=== PATIENT | male | born 1970 | race Caucasian/White ===

== ENCOUNTER → 2016-05-14 | Outpatient (CLI) | payer MEDICAID ==
[~2016-05-14] MED LIST: ACULAR 3 ML3 M1 OP; CATAFLAM50 MG PO; HYDROCODONE BIT1 T11 PO; IBU-8800 MG PO; MOTRIN800 MG PO; Motrin,Rufen800 MG PO; NORFLEX100 MG PO; Orphenadrine C100 MG PO; ROBAXIN750 MG PO; TOBRADEX 0.1%-0.5 ML OPH; TOBREX OPHTH S2.5 ML OPH; VICODIN ES 7501 TAB PO
[2016-05-14 19:03] LABS: HEMATOCRIT 42.8 % (42.0-52.0); HEMOGLOBIN 14.7 g/dl (14.0-18.0); MEAN CELL VOLUME 87.3 fl (80.0-94.0); MEAN CORPUSCULAR HGB CONC 34.3 g/dl (33.0-37.0); RED BLOOD COUNT 4.9 10*6/uL (4.50-5.90); RED CELL DISTRI WIDTH 12.1 % (0-14.5); WHITE BLOOD COUNT 7.1 10*3/uL (4.8-10.8)
[2016-05-14 19:21] LABS: ALBUMIN 3.8 gm/dl (3.1-4.5); ALKALINE PHOSPHATASE 86 U/L (45-117); BILIRUBIN, TOTAL 0.2 mg/dl (0.2-1.0); BUN 13 mg/dl (7-24); CARBON DIOXIDE 28 mmol/L (21-32); CHLORIDE 108 mmol/L (98-107); CHOLESTEROL 250 mg/dL (<200); EST GLOM FILT AFRICAN AMERICAN > 60 ml/min; GLUCOSE 92 mg/dL (65-99); HDL CHOLESTEROL 38 mg/dl (40-60); LDL CHOLESTEROL 178 mg/dL (9-159); POTASSIUM 4.2 mmol/L (3.5-5.1); SGOT/AST 64 IU/L (3-35); SGPT/ALT 94 U/L (12-78); SODIUM 143 mmol/L (136-145); TOTAL PROTEIN 6.9 gm/dL (6.4-8.2); TRIGLYCERIDES 169 mg/dl (<150); VLDL CHOLESTEROL 34 mg/dL (6-40)
[2016-05-14 19:44] LABS: HEMOGLOBIN A1c 5.5 % (4.8-5.6)
== END | disposition home or self-care (01) ==
LOC: LAB 18:22
PROVIDERS: Family Medicine
DX: M77.9 Enthesopathy, unspecified (principal); M79.602 Pain in left arm; R07.89 Other chest pain; R73.9 Hyperglycemia, unspecified; R05 Cough

== ENCOUNTER → 2016-05-19 | Outpatient (CLI) | payer MEDICAID ==
[2016-05-20 09:10] LABS: HEPATITIS C VIRUS ANTIBODY <0.1 s/co (0.0-0.9)
== END | disposition home or self-care (01) ==
LOC: MRI 13:00 → LAB 13:01
PROVIDERS: Specialist
DX: H90.42 Sensorineural hearing loss, unilateral, left ear, with unrestricted hearing on the contralateral side (principal); J01.20 Acute ethmoidal sinusitis, unspecified; R94.5 Abnormal results of liver function studies

== ENCOUNTER → 2016-10-30 | Outpatient (CLI) | payer OTHER | END | disposition home or self-care (01) | LOC: US 10-22 00:24 | DX: I73.9 Peripheral vascular disease, unspecified (principal) ==

== ENCOUNTER → 2016-11-10 | Outpatient (CLI) | payer OTHER ==
[~2016-11-10] MED LIST changes: +ECOTRIN81 M1 PO
--- NOTE | 2016-11-10 07:00 | NUR ---
INFORMED CONSENT OBTAINED FOR EXERCISE STRESS ECHO. RESTING EKG NSR WITH FREQUENT PVC'S WITH A SUPINE HR OF 77 WITH BP OF 104/62 AND HR OF 84 WITH BP OF 122/80 IN STANDING POSITION. PT COMPLETED 6:00 OF A 2:00 ALDO PROTOCOL WITH A PEAK HR OF 160 WHICH IS 92% OF PREDICTED MAX WITH PEAK BP OF 170/88. TEST TERMINATED BECAUSE OF FATIGUE. HAD NO CHEST PAIN OR ANY ST CHANGES. PVC'S LESS WITH EXERCISE. NEGATIVE STRESS ECHO. SEE DICTATION FOR FULL REPORT. LAST RECOVERY HR OF 95 WITH BP OF 144/58. HAS A GOOD EXERCISE TOLERANCE. IV DISCONTINUED AND DISCHARGED IN STABLE CONDITION.
== END | disposition home or self-care (01) ==
LOC: CARD 01:53
DX: I20.9 Angina pectoris, unspecified (principal)

== ENCOUNTER → 2016-11-20 | Outpatient (CLI) | payer OTHER ==
[2016-11-20 11:34] LABS: HEMATOCRIT 43.6 % (42.0-52.0); HEMOGLOBIN 14.7 g/dl (14.0-18.0); MEAN CELL VOLUME 88.1 fl (80.0-94.0); MEAN CORPUSCULAR HGB 29.7 pg (27.0-31.0); MEAN CORPUSCULAR HGB CONC 33.7 g/dl (33.0-37.0); MEAN PLATELET VOLUME 11.4 fl (9.6-12.3); RED BLOOD COUNT 4.95 10*6/uL (4.50-5.90); RED CELL DISTRI WIDTH 12.5 % (0-14.5); WHITE BLOOD COUNT 9.6 10*3/uL (4.8-10.8)
[2016-11-20 12:06] LABS: ALBUMIN 3.6 gm/dl (3.1-4.5); ALKALINE PHOSPHATASE 84 U/L (45-117); BUN 16 mg/dl (7-24); CHLORIDE 107 mmol/L (98-107); CHOLESTEROL 267 mg/dL (<200); CREATININE 0.81 mg/dL (0.70-1.30); HDL CHOLESTEROL 43 mg/dl (40-60); LDL CHOLESTEROL 194 mg/dL (9-159); POTASSIUM 4.5 mmol/L (3.5-5.1); SGOT/AST 20 IU/L (3-35); SGPT/ALT 33 U/L (12-78); SODIUM 142 mmol/L (136-145); TRIGLYCERIDES 151 mg/dl (<150); VLDL CHOLESTEROL 30 mg/dL (6-40)
== END | disposition home or self-care (01) ==
LOC: LAB 11:04
PROVIDERS: Family Medicine
DX: E78.00 Pure hypercholesterolemia, unspecified (principal); E55.9 Vitamin D deficiency, unspecified; R07.9 Chest pain, unspecified; R53.83 Other fatigue

== ENCOUNTER 2017-03-23 14:33 | Emergency (ER) | payer OTHER ==
[~2017-03-23] VITALS: Ht 172.7 cm; Wt 104.3 kg
[2017-03-23] MEDS ORDERED: CYCLOBENZAPRINE10 MG PO (16:41)
[2017-03-23] MEDS ORDERED: NAPROSYN500 MG PO (16:41)
== END 2017-03-23 16:47 | disposition home or self-care (01) ==
LOC: ED 14:33
DX: S16.1XXA Strain of muscle, fascia and tendon at neck level, initial encounter (principal); M25.512 Pain in left shoulder; M25.562 Pain in left knee; M25.571 Pain in right ankle and joints of right foot; F17.200 Nicotine dependence, unspecified, uncomplicated; Z79.82 Long term (current) use of aspirin; Z88.0 Allergy status to penicillin; Z88.2 Allergy status to sulfonamides; Z88.6 Allergy status to analgesic agent; V49.88XA Car occupant (driver) (passenger) injured in other specified transport accidents, initial encounter; Y93.89 Activity, other specified; Y92.413 State road as the place of occurrence of the external cause; Y99.9 Unspecified external cause status

== ENCOUNTER → 2017-07-02 | Outpatient (CLI) | payer OTHER ==
[~2017-07-02] MED LIST changes: +CYCLOBENZAPRINE10 MG PO; +NAPROSYN500 MG PO
[2017-07-02 19:58] LABS: HEMOGLOBIN 14.3 g/dl (14.0-18.0); MEAN CELL VOLUME 85.4 fl (80.0-94.0); MEAN CORPUSCULAR HGB 29.8 pg (27.0-31.0); MEAN CORPUSCULAR HGB CONC 34.9 g/dl (33.0-37.0); MEAN PLATELET VOLUME 11.1 fl (9.6-12.3); RED BLOOD COUNT 4.8 10*6/uL (4.50-5.90); RED CELL DISTRI WIDTH 12.1 % (0-14.5); WHITE BLOOD COUNT 10.7 10*3/uL (4.8-10.8)
[2017-07-02 20:13] LABS: ALBUMIN 4.1 gm/dl (3.1-4.5); ALKALINE PHOSPHATASE 73 U/L (45-117); BUN 14 mg/dl (7-24); CHLORIDE 106 mmol/L (98-107); CHOLESTEROL 257 mg/dL (<200); CREATININE 0.81 mg/dL (0.70-1.30); HDL CHOLESTEROL 45 mg/dl (40-60); LDL CHOLESTEROL 189 mg/dL (9-159); POTASSIUM 3.7 mmol/L (3.5-5.1); SGOT/AST 16 IU/L (3-35); SGPT/ALT 24 U/L (12-78); SODIUM 141 mmol/L (136-145); TOTAL PROTEIN 7.1 gm/dL (6.4-8.2); TRIGLYCERIDES 114 mg/dl (<150); VLDL CHOLESTEROL 23 mg/dL (6-40)
== END | disposition home or self-care (01) ==
LOC: LAB 19:26
PROVIDERS: Family Medicine
DX: E78.00 Pure hypercholesterolemia, unspecified (principal); E55.9 Vitamin D deficiency, unspecified; R10.9 Unspecified abdominal pain; R53.83 Other fatigue

== ENCOUNTER → 2017-12-17 | Outpatient (CLI) | payer OTHER ==
[2017-12-17 16:19] LABS: CHOLESTEROL 210 mg/dL (<200); HDL CHOLESTEROL 54 mg/dl (40-60); LDL CHOLESTEROL 142 mg/dL (9-159); TRIGLYCERIDES 72 mg/dl (<150); VLDL CHOLESTEROL 14 mg/dL (6-40)
== END | disposition home or self-care (01) ==
LOC: LAB 15:01
PROVIDERS: Family Medicine
DX: E78.00 Pure hypercholesterolemia, unspecified (principal)

== ENCOUNTER → 2018-04-04 | Outpatient (CLI) | payer OTHER ==
[2018-04-04 12:56] LABS: HEMATOCRIT 42.7 % (42.0-52.0); HEMOGLOBIN 14.6 g/dl (14.0-18.0); MEAN CELL VOLUME 89.1 fl (80.0-94.0); MEAN CORPUSCULAR HGB 30.5 pg (27.0-31.0); MEAN CORPUSCULAR HGB CONC 34.2 g/dl (33.0-37.0); MEAN PLATELET VOLUME 11.7 fl (9.6-12.3); RED BLOOD COUNT 4.79 10*6/uL (4.50-5.90); RED CELL DISTRI WIDTH 12.2 % (0-14.5); WHITE BLOOD COUNT 7.7 10*3/uL (4.8-10.8)
[2018-04-04 13:00] LABS: ALBUMIN 3.8 gm/dl (3.1-4.5); ALKALINE PHOSPHATASE 71 U/L (45-117); BUN 14 mg/dl (7-24); CHLORIDE 110 mmol/L (98-107); CHOLESTEROL 202 mg/dL (<200); CPK 149 U/L (39-308); CREATININE 0.89 mg/dL (0.70-1.30); HDL CHOLESTEROL 53 mg/dl (40-60); LDL CHOLESTEROL 136 mg/dL (9-159); POTASSIUM 4.2 mmol/L (3.5-5.1); SGOT/AST 16 IU/L (3-35); SGPT/ALT 23 U/L (12-78); SODIUM 141 mmol/L (136-145); TOTAL PROTEIN 7.1 gm/dL (6.4-8.2); TRIGLYCERIDES 66 mg/dl (<150); VLDL CHOLESTEROL 13 mg/dL (6-40)
== END | disposition home or self-care (01) ==
LOC: LAB 11:21
PROVIDERS: Family Medicine
DX: E55.9 Vitamin D deficiency, unspecified (principal); E78.00 Pure hypercholesterolemia, unspecified; R22.32 Localized swelling, mass and lump, left upper limb

== ENCOUNTER → 2018-07-21 | Outpatient (CLI) | payer BC ==
[2018-07-21 09:17] LABS: HEMATOCRIT 41.7 % (42.0-52.0); HEMOGLOBIN 14.2 g/dl (14.0-18.0); MEAN CELL VOLUME 88.3 fl (80.0-94.0); MEAN CORPUSCULAR HGB 30.1 pg (27.0-31.0); MEAN CORPUSCULAR HGB CONC 34.1 g/dl (33.0-37.0); RED BLOOD COUNT 4.72 10*6/uL (4.50-5.90); RED CELL DISTRI WIDTH 11.9 % (0-14.5); WHITE BLOOD COUNT 8.8 10*3/uL (4.8-10.8)
[2018-07-21 09:47] LABS: ALBUMIN 3.9 gm/dl (3.1-4.5); ALKALINE PHOSPHATASE 65 U/L (45-117); BUN 22 mg/dl (7-24); CHLORIDE 111 mmol/L (98-107); CHOLESTEROL 237 mg/dL (<200); CPK 99 U/L (39-308); HDL CHOLESTEROL 38 mg/dl (40-60); LDL CHOLESTEROL 166 mg/dL (9-159); SGOT/AST 16 IU/L (3-35); SGPT/ALT 20 U/L (12-78); SODIUM 143 mmol/L (136-145); TOTAL PROTEIN 6.5 gm/dL (6.4-8.2); TRIGLYCERIDES 166 mg/dl (<150); VLDL CHOLESTEROL 33 mg/dL (6-40)
[2018-07-23 05:07] LABS: TESTOSTERONE FREE, (DIRECT) 6.6 pg/mL (6.8-21.5)
== END | disposition home or self-care (01) ==
LOC: LAB 08:53
PROVIDERS: Family Medicine
DX: M47.812 Spondylosis without myelopathy or radiculopathy, cervical region (principal); E78.00 Pure hypercholesterolemia, unspecified; E55.9 Vitamin D deficiency, unspecified; R53.83 Other fatigue; M25.511 Pain in right shoulder

== ENCOUNTER 2019-08-02 16:10 | Emergency (ER) | payer OTHER ==
[~2019-08-02] VITALS: Ht 177.8 cm; Wt 108.0 kg
== END 2019-08-02 19:20 | disposition home or self-care (01) ==
LOC: ED 16:10
DX: S60.221A Contusion of right hand, initial encounter (principal); Z88.0 Allergy status to penicillin; Z88.2 Allergy status to sulfonamides; Z88.6 Allergy status to analgesic agent; Z79.899 Other long term (current) drug therapy; Z79.82 Long term (current) use of aspirin; W22.8XXA Striking against or struck by other objects, initial encounter; Y93.89 Activity, other specified; Y92.89 Other specified places as the place of occurrence of the external cause; Y99.8 Other external cause status

== ENCOUNTER → 2019-11-21 | Outpatient (CLI) | payer OTHER ==
[2019-11-21 11:41] LABS: HEMATOCRIT 44.4 % (42.0-52.0); MEAN CORPUSCULAR HGB 29.9 pg (27.0-31.0); MEAN CORPUSCULAR HGB CONC 33.6 g/dl (33.0-37.0); MEAN PLATELET VOLUME 10.9 fl (9.6-12.3); RED BLOOD COUNT 4.99 10*6/uL (4.50-5.90); RED CELL DISTRI WIDTH 12.3 % (0-14.5); WHITE BLOOD COUNT 8.3 10*3/uL (4.8-10.8)
[2019-11-21 12:04] LABS: ALBUMIN 3.9 gm/dl (3.1-4.5); ALKALINE PHOSPHATASE 71 U/L (45-117); BUN 16 mg/dl (7-24); CHLORIDE 110 mmol/L (98-107); CHOLESTEROL 269 mg/dL (<200); CREATININE 0.81 mg/dL (0.70-1.30); HDL CHOLESTEROL 48 mg/dl (40-60); LDL CHOLESTEROL 203 mg/dL (9-159); SGOT/AST 17 IU/L (3-35); SGPT/ALT 25 U/L (12-78); SODIUM 138 mmol/L (136-145); TOTAL PROTEIN 6.9 gm/dL (6.4-8.2); TRIGLYCERIDES 92 mg/dl (<150); VLDL CHOLESTEROL 18 mg/dL (6-40)
[2019-11-23 13:11] LABS: TESTOSTERONE FREE, (DIRECT) 5.6 pg/mL (6.8-21.5)
== END | disposition home or self-care (01) ==
LOC: LAB 11:15
PROVIDERS: ATTEND Family Medicine
DX: R22.31 Localized swelling, mass and lump, right upper limb (principal); N64.4 Mastodynia; Z12.5 Encounter for screening for malignant neoplasm of prostate

== ENCOUNTER 2020-04-15 18:56 | Emergency (ER) | payer OTHER ==
[~2020-04-15] VITALS: Ht 175.2 cm; Wt 106.6 kg
[2020-04-15 21:09] LABS: BASO # 0.1 10*3/uL (0.0-0.1); BASO % 0.5 % (0.0-1.0); EOS # 0.2 10*3/uL (0.0-0.4); EOS % 1.5 % (1.0-4.0); HEMATOCRIT 43.1 % (42.0-52.0); LYMPH # 2.7 10*3/uL (1.3-4.4); LYMPH % 20.6 % (27.0-41.0); MEAN CELL VOLUME 88.3 fl (80.0-94.0); MEAN CORPUSCULAR HGB 29.7 pg (27.0-31.0); MEAN CORPUSCULAR HGB CONC 33.6 g/dl (33.0-37.0); MEAN PLATELET VOLUME 10.3 fl (9.6-12.3); MONO # 0.9 10*3/uL (0.1-1.0); MONO % 6.5 % (3.0-9.0); NEUT # 9.2 10*3/uL (2.3-7.9); NEUT % 70.5 % (47.0-73.0); PLATELET COUNT AUTOMATED 251 10*3/uL (130-400); RED BLOOD COUNT 4.88 10*6/uL (4.50-5.90); RED CELL DISTRI WIDTH 12.2 % (0-14.5); WHITE BLOOD COUNT 13.1 10*3/uL (4.8-10.8)
[2020-04-15 21:25] LABS: ALBUMIN 3.8 gm/dl (3.1-4.5); ALKALINE PHOSPHATASE 79 U/L (45-117); BUN 13 mg/dl (7-24); CHLORIDE 107 mmol/L (98-107); CREATININE 0.79 mg/dL (0.70-1.30); LIPASE 117 U/L (73-393); POTASSIUM 4.4 mmol/L (3.5-5.1); SGOT/AST 20 IU/L (3-35); SGPT/ALT 37 U/L (12-78); SODIUM 141 mmol/L (136-145); TOTAL PROTEIN 7.1 gm/dL (6.4-8.2)
[2020-04-15 22:22] LABS: BILIRUBIN Negative (Negative); BLOOD 1+ (Negative); CLARITY Clear (Clear); COLOR Yellow (Yellow); GLUCOSE Negative (Negative); KETONE Negative (Negative); LEUKO ESTERASE Negative (Negative); NITRITE Negative (Negative); UROBILINOGEN 0.2 E.U./dl (0.0-1.0)
[2020-04-15 22:31] LABS: WBC 0-2 wbc/hpf (0-5)
== END 2020-04-16 00:15 | disposition home or self-care (01) ==
LOC: ED 18:56
PROVIDERS: Physician Assistant
DX: R10.9 Unspecified abdominal pain (principal); K21.9 Gastro-esophageal reflux disease without esophagitis; E78.00 Pure hypercholesterolemia, unspecified; Z88.0 Allergy status to penicillin; Z88.2 Allergy status to sulfonamides; Z79.899 Other long term (current) drug therapy

== ENCOUNTER 2020-10-29 18:22 | Emergency (ER) | payer OTHER ==
[~2020-10-29] VITALS: Ht 175.2 cm; Wt 83.9 kg
[2020-10-29 19:06] LABS: BASO # 0.1 10*3/uL (0.0-0.1); BASO % 0.9 % (0.0-1.0); EOS # 0.2 10*3/uL (0.0-0.4); EOS % 2.2 % (1.0-4.0); HEMATOCRIT 44.1 % (42.0-52.0); LYMPH # 3.2 10*3/uL (1.3-4.4); LYMPH % 39.8 % (27.0-41.0); MEAN CELL VOLUME 87.3 fl (80.0-94.0); MEAN CORPUSCULAR HGB 29.7 pg (27.0-31.0); MEAN PLATELET VOLUME 11.3 fl (9.6-12.3); MONO # 0.5 10*3/uL (0.1-1.0); MONO % 6.2 % (3.0-9.0); NEUT # 4.1 10*3/uL (2.3-7.9); NEUT % 50.5 % (47.0-73.0); PLATELET COUNT AUTOMATED 222 10*3/uL (130-400); RED BLOOD COUNT 5.05 10*6/uL (4.50-5.90); RED CELL DISTRI WIDTH 12.4 % (0-14.5); WHITE BLOOD COUNT 8.1 10*3/uL (4.8-10.8)
[2020-10-29 19:24] LABS: ALBUMIN 3.6 gm/dl (3.1-4.5); BUN 11 mg/dl (7-24); CHLORIDE 107 mmol/L (98-107); CREATININE 1.05 mg/dL (0.70-1.30); POTASSIUM 3.7 mmol/L (3.5-5.1); SGOT/AST 21 IU/L (3-35); SGPT/ALT 28 U/L (12-78); SODIUM 143 mmol/L (136-145); TOTAL PROTEIN 6.7 gm/dL (6.4-8.2)
[2020-10-29 19:27] LABS: ALKALINE PHOSPHATASE 74 U/L (45-117); TROPONIN I < 0.015 ng/ml (<0.045)
== END 2020-10-29 23:54 | disposition home or self-care (01) ==
LOC: ED 18:22
PROVIDERS: Emergency Medicine
DX: R07.9 Chest pain, unspecified (principal); Z88.0 Allergy status to penicillin; Z88.2 Allergy status to sulfonamides; Z88.6 Allergy status to analgesic agent; Z79.899 Other long term (current) drug therapy

== ENCOUNTER → 2021-01-09 | Outpatient (CLI) | payer OTHER | END | disposition home or self-care (01) | LOC: RAD 12:44 | PROVIDERS: ATTEND Family Medicine | DX: M25.562 Pain in left knee (principal) ==

== ENCOUNTER 2021-01-30 06:31 | Emergency (ER) | payer OTHER ==
[~2021-01-30] VITALS: Ht 177.8 cm; Wt 86.2 kg
[2021-01-30 07:00] LABS: BASO # 0.1 10*3/uL (0.0-0.1); BASO % 0.7 % (0.0-1.0); EOS # 0.2 10*3/uL (0.0-0.4); EOS % 2.9 % (1.0-4.0); LYMPH # 3.2 10*3/uL (1.3-4.4); LYMPH % 37.8 % (27.0-41.0); MEAN CELL VOLUME 88.7 fl (80.0-94.0); MEAN CORPUSCULAR HGB 30.3 pg (27.0-31.0); MEAN CORPUSCULAR HGB CONC 34.2 g/dl (33.0-37.0); MEAN PLATELET VOLUME 10.8 fl (9.6-12.3); MONO # 0.6 10*3/uL (0.1-1.0); MONO % 7.3 % (3.0-9.0); NEUT # 4.3 10*3/uL (2.3-7.9); NEUT % 51.1 % (47.0-73.0); PLATELET COUNT AUTOMATED 223 10*3/uL (130-400); RED BLOOD COUNT 4.85 10*6/uL (4.50-5.90); RED CELL DISTRI WIDTH 12.1 % (0-14.5); WHITE BLOOD COUNT 8.4 10*3/uL (4.8-10.8)
[2021-01-30 07:13] LABS: ACT PARTIAL THROMBO TIME 28.3 SECONDS (20.0-32.1)
[2021-01-30 07:17] LABS: ALBUMIN 3.7 gm/dl (3.1-4.5); ALKALINE PHOSPHATASE 74 U/L (45-117); BUN 13 mg/dl (7-24); CHLORIDE 108 mmol/L (98-107); CREATININE 0.81 mg/dL (0.70-1.30); POTASSIUM 4.3 mmol/L (3.5-5.1); SGOT/AST 28 IU/L (3-35); SGPT/ALT 32 U/L (12-78); SODIUM 139 mmol/L (136-145); TOTAL PROTEIN 6.8 gm/dL (6.4-8.2)
== END 2021-01-30 09:42 | disposition home or self-care (01) ==
LOC: ED 06:31
PROVIDERS: Internal Medicine
DX: R43.8 Other disturbances of smell and taste (principal); Z20.822 Contact with and (suspected) exposure to COVID-19; R53.83 Other fatigue; R53.1 Weakness; R05.9 Cough, unspecified; Z88.0 Allergy status to penicillin; Z88.2 Allergy status to sulfonamides; Z88.6 Allergy status to analgesic agent; Z79.82 Long term (current) use of aspirin

== ENCOUNTER 2021-03-11 06:53 | Emergency (ER) | payer OTHER ==
[~2021-03-11] VITALS: Ht 175.2 cm; Wt 99.8 kg
== END 2021-03-11 08:55 | disposition left against medical advice (07) ==
LOC: ED 06:53
DX: J02.9 Acute pharyngitis, unspecified (principal); R11.0 Nausea; R51.9 Headache, unspecified; Z53.21 Procedure and treatment not carried out due to patient leaving prior to being seen by health care provider

== ENCOUNTER 2021-04-14 17:07 | Emergency (ER) | payer OTHER ==
[~2021-04-14] VITALS: Ht 175.2 cm; Wt 99.8 kg
[2021-04-14 18:00] LABS: BASO # 0.1 10*3/uL (0.0-0.1); BASO % 0.9 % (0.0-1.0); EOS # 0.1 10*3/uL (0.0-0.4); EOS % 1.4 % (1.0-4.0); HEMATOCRIT 45.6 % (42.0-52.0); LYMPH % 21.8 % (27.0-41.0); MEAN CELL VOLUME 87.2 fl (80.0-94.0); MEAN CORPUSCULAR HGB 29.4 pg (27.0-31.0); MEAN CORPUSCULAR HGB CONC 33.8 g/dl (33.0-37.0); MEAN PLATELET VOLUME 11.1 fl (9.6-12.3); MONO # 0.7 10*3/uL (0.1-1.0); MONO % 7.2 % (3.0-9.0); NEUT # 6.3 10*3/uL (2.3-7.9); NEUT % 68.5 % (47.0-73.0); PLATELET COUNT AUTOMATED 218 10*3/uL (130-400); RED BLOOD COUNT 5.23 10*6/uL (4.50-5.90); WHITE BLOOD COUNT 9.2 10*3/uL (4.8-10.8)
[2021-04-14 18:19] LABS: ALKALINE PHOSPHATASE 69 U/L (45-117); BUN 14 mg/dl (7-24); CHLORIDE 111 mmol/L (98-107); CREATININE 0.85 mg/dL (0.70-1.30); POTASSIUM 3.7 mmol/L (3.5-5.1); SGOT/AST 21 IU/L (3-35); SGPT/ALT 26 U/L (12-78); SODIUM 141 mmol/L (136-145); TOTAL PROTEIN 6.8 gm/dL (6.4-8.2)
[2021-04-14] MEDS ORDERED: PREDNISONE50 MG PO (19:35)
[2021-04-14] MEDS ORDERED: PROAIR HFA8.5 GM INH (19:35)
== END 2021-04-14 20:00 | disposition home or self-care (01) ==
LOC: ED 17:07
PROVIDERS: Nurse Practitioner Family
DX: B34.9 Viral infection, unspecified (principal); J98.01 Acute bronchospasm; F17.200 Nicotine dependence, unspecified, uncomplicated; Z88.0 Allergy status to penicillin; Z88.2 Allergy status to sulfonamides; Z88.6 Allergy status to analgesic agent; Z90.89 Acquired absence of other organs

== ENCOUNTER 2021-06-11 11:26 | Emergency (ER) | payer OTHER ==
[~2021-06-11] VITALS: Ht 175.2 cm; Wt 97.5 kg
[~2021-06-11 11:26] MED LIST changes: +PREDNISONE50 MG PO; +PROAIR HFA8.5 GM INH
[2021-06-11] MEDS ORDERED: MEDROL DOSEPAK4 MG PO (16:03)
== END 2021-06-11 14:04 | disposition home or self-care (01) ==
LOC: ED 11:26
DX: S12.9XXA Fracture of neck, unspecified, initial encounter (principal); Z88.0 Allergy status to penicillin; Z88.6 Allergy status to analgesic agent; Z90.89 Acquired absence of other organs; X58.XXXA Exposure to other specified factors, initial encounter; Y93.89 Activity, other specified; Y92.89 Other specified places as the place of occurrence of the external cause; Y99.8 Other external cause status

== ENCOUNTER → 2021-10-23 | Outpatient (CLI) | payer OTHER ==
[~2021-10-23] MED LIST changes: +MEDROL DOSEPAK4 MG PO
[2021-10-23 15:57] LABS: HEMATOCRIT 42.5 % (42.0-52.0); MEAN CELL VOLUME 89.7 fl (80.0-94.0); MEAN CORPUSCULAR HGB 30.4 pg (27.0-31.0); MEAN CORPUSCULAR HGB CONC 33.9 g/dl (33.0-37.0); MEAN PLATELET VOLUME 10.3 fl (9.6-12.3); RED BLOOD COUNT 4.74 10*6/uL (4.50-5.90); RED CELL DISTRI WIDTH 12.3 % (0-14.5); WHITE BLOOD COUNT 8.5 10*3/uL (4.8-10.8)
[2021-10-23 16:14] LABS: ALKALINE PHOSPHATASE 79 U/L (45-117); BUN 15 mg/dl (7-24); CHLORIDE 110 mmol/L (98-107); CHOLESTEROL 296 mg/dL (<200); CREATININE 0.91 mg/dL (0.70-1.30); LDL CHOLESTEROL 200 mg/dL (9-159); POTASSIUM 3.9 mmol/L (3.5-5.1); SGOT/AST 20 IU/L (3-35); SGPT/ALT 32 U/L (12-78); SODIUM 142 mmol/L (136-145); TOTAL PROTEIN 6.7 gm/dL (6.4-8.2); TRIGLYCERIDES 266 mg/dl (<150)
[2021-10-23 17:03] LABS: VITAMIN D, 25-HYDROXY 18.7 ng/mL (30-100)
== END | disposition home or self-care (01) ==
LOC: LAB 15:31
PROVIDERS: ATTEND Family Medicine
DX: M75.41 Impingement syndrome of right shoulder (principal); E55.9 Vitamin D deficiency, unspecified; Z01.812 Encounter for preprocedural laboratory examination

== ENCOUNTER 2021-12-28 14:48 | Emergency (ER) | payer OTHER ==
[~2021-12-28] VITALS: Ht 175.2 cm; Wt 1084.1 kg
[2021-12-28 15:47] LABS: BASO # 0.1 10*3/uL (0.0-0.1); BASO % 0.6 % (0.0-1.0); EOS # 0.2 10*3/uL (0.0-0.4); EOS % 2.4 % (1.0-4.0); HEMATOCRIT 42.4 % (42.0-52.0); LYMPH # 2.8 10*3/uL (1.3-4.4); LYMPH % 30.1 % (27.0-41.0); MEAN CELL VOLUME 89.1 fl (80.0-94.0); MEAN CORPUSCULAR HGB CONC 33.7 g/dl (33.0-37.0); MEAN PLATELET VOLUME 10.9 fl (9.6-12.3); MONO # 0.6 10*3/uL (0.1-1.0); MONO % 6.5 % (3.0-9.0); NEUT # 5.6 10*3/uL (2.3-7.9); NEUT % 60.1 % (47.0-73.0); PLATELET COUNT AUTOMATED 231 10*3/uL (130-400); RED BLOOD COUNT 4.76 10*6/uL (4.50-5.90); RED CELL DISTRI WIDTH 12.1 % (0-14.5); WHITE BLOOD COUNT 9.3 10*3/uL (4.8-10.8)
[2021-12-28 16:06] LABS: ALKALINE PHOSPHATASE 89 U/L (45-117); BUN 16 mg/dl (7-24); CHLORIDE 111 mmol/L (98-107); CREATININE 0.74 mg/dL (0.70-1.30); POTASSIUM 3.9 mmol/L (3.5-5.1); SGOT/AST 20 IU/L (3-35); SGPT/ALT 37 U/L (12-78); SODIUM 143 mmol/L (136-145); TOTAL PROTEIN 6.8 gm/dL (6.4-8.2)
[2021-12-28] MEDS ORDERED: PREDNISONE20 M1 PO (16:48)
== END 2021-12-28 16:53 | disposition home or self-care (01) ==
LOC: ED 14:48
PROVIDERS: Physician Assistant
DX: J40 Bronchitis, not specified as acute or chronic (principal); Z88.0 Allergy status to penicillin; Z88.2 Allergy status to sulfonamides; Z88.6 Allergy status to analgesic agent; Z79.899 Other long term (current) drug therapy

== ENCOUNTER 2022-07-23 22:08 | Emergency (ER) | payer MEDICAID ==
[~2022-07-23] VITALS: Ht 172 cm; Wt 104.3 kg
[~2022-07-23 22:08] MED LIST changes: +PREDNISONE20 M1 PO
[2022-07-23] MEDS ORDERED: LIPITOR20 MG PO (22:32)
[2022-07-23 23:20] LABS: BILIRUBIN Negative (Negative); BLOOD Negative (Negative); CLARITY Clear (Clear); COLOR Dark Yellow (Yellow); GLUCOSE Negative (Negative); KETONE Trace (Negative); LEUKO ESTERASE Negative (Negative); NITRITE Negative (Negative); SPECIFIC GRAVITY >= 1.030 (1.001-1.030)
[2022-07-23 23:38] LABS: WBC 0-2 wbc/hpf (0-5)
[2022-07-24] MEDS ORDERED: CYCLOBENZAPRINE10 MG PO (02:33)
== END 2022-07-24 02:35 | disposition home or self-care (01) ==
LOC: ED 22:08
PROVIDERS: Student in an Organized Health Care Education/Training Program
DX: S39.012A Strain of muscle, fascia and tendon of lower back, initial encounter (principal); K21.9 Gastro-esophageal reflux disease without esophagitis; F32.A Depression, unspecified; Z87.442 Personal history of urinary calculi; E78.00 Pure hypercholesterolemia, unspecified; Z88.0 Allergy status to penicillin; Z88.2 Allergy status to sulfonamides; Z88.6 Allergy status to analgesic agent; Z98.890 Other specified postprocedural states; X58.XXXA Exposure to other specified factors, initial encounter; Y93.89 Activity, other specified; Y92.89 Other specified places as the place of occurrence of the external cause; Y99.8 Other external cause status

== ENCOUNTER → 2022-08-20 | Outpatient (CLI) | payer MEDICAID ==
[~2022-08-20] MED LIST changes: +LIPITOR20 MG PO
[2022-08-20 12:37] LABS: HEMATOCRIT 42.6 % (42.0-52.0); MEAN CELL VOLUME 89.9 fl (80.0-94.0); MEAN CORPUSCULAR HGB CONC 33.3 g/dl (33.0-37.0); RED BLOOD COUNT 4.74 10*6/uL (4.50-5.90); RED CELL DISTRI WIDTH 12.1 % (0-14.5); WHITE BLOOD COUNT 8.7 10*3/uL (4.8-10.8)
[2022-08-20 13:05] LABS: ALKALINE PHOSPHATASE 76 U/L (46-116); BUN 11 mg/dl (9-23); CHLORIDE 107 mmol/L (98-107); CHOLESTEROL 226 mg/dL (<200); CPK 97 U/L (34-171); LDL CHOLESTEROL 141 mg/dL (9-159); POTASSIUM 3.8 mmol/L (3.4-5.1); SGPT/ALT 18 U/L (10-49); TOTAL PROTEIN 6.6 gm/dL (6.0-8.0); TRIGLYCERIDES 196 mg/dl (<150)
[2022-08-20 13:31] LABS: VITAMIN D, 25-HYDROXY 33.5 ng/mL (30-100)
== END | disposition home or self-care (01) ==
LOC: LAB 11:36
PROVIDERS: ATTEND Family Medicine
DX: Z12.5 Encounter for screening for malignant neoplasm of prostate (principal); E78.00 Pure hypercholesterolemia, unspecified; R55 Syncope and collapse; E55.9 Vitamin D deficiency, unspecified; I10 Essential (primary) hypertension; R53.83 Other fatigue

== ENCOUNTER 2022-10-10 18:37 | Emergency (ER) | payer MEDICAID ==
[~2022-10-10] VITALS: Ht 177.8 cm; Wt 97.5 kg
[2022-10-10] MEDS ORDERED: LOSARTAN POTASS50 M1 PO (18:52)
[2022-10-10] MEDS ORDERED: METFORMIN XR500 MG PO (18:52)
[2022-10-10] MEDS ORDERED: VIBRAMYCIN100 MG PO (19:02)
== END 2022-10-10 19:26 | disposition home or self-care (01) ==
LOC: ED 18:37
DX: S80.861A Insect bite (nonvenomous), right lower leg, initial encounter (principal); B35.3 Tinea pedis; K21.9 Gastro-esophageal reflux disease without esophagitis; F32.A Depression, unspecified; Z87.442 Personal history of urinary calculi; E78.00 Pure hypercholesterolemia, unspecified; Z88.0 Allergy status to penicillin; Z88.2 Allergy status to sulfonamides; Z88.6 Allergy status to analgesic agent; Z98.890 Other specified postprocedural states; W57.XXXA Bitten or stung by nonvenomous insect and other nonvenomous arthropods, initial encounter; Y93.89 Activity, other specified; Y92.89 Other specified places as the place of occurrence of the external cause; Y99.8 Other external cause status

== ENCOUNTER 2023-04-27 15:43 | Emergency (ER) | payer BC ==
[~2023-04-27] VITALS: Ht 175.2 cm; Wt 99.8 kg
[~2023-04-27 15:43] MED LIST changes: +LOSARTAN POTASS50 M1 PO; +METFORMIN XR500 MG PO; +VIBRAMYCIN100 MG PO
[2023-04-27] MEDS ORDERED: OMEPRAZOLE40 MG PO (16:15)
[2023-04-27] MEDS ORDERED: NAPROXEN 250 MG TAB PO ONE (16:20)
[2023-04-27] MEDS ORDERED: NAPROSYN500 MG PO (18:31)
[2023-04-27] MEDS ORDERED: ZANAFLEX4 MG PO (18:31)
== END 2023-04-27 18:45 | disposition home or self-care (01) ==
LOC: ED 15:43
DX: M25.775 Osteophyte, left foot (principal); K21.9 Gastro-esophageal reflux disease without esophagitis; F32.A Depression, unspecified; Z87.442 Personal history of urinary calculi; E78.00 Pure hypercholesterolemia, unspecified; Z88.0 Allergy status to penicillin; Z88.2 Allergy status to sulfonamides; Z88.6 Allergy status to analgesic agent; Z98.890 Other specified postprocedural states

== ENCOUNTER 2023-06-15 10:35 | Emergency (ER) | payer BC ==
[~2023-06-15] VITALS: Ht 175.2 cm; Wt 102.1 kg
[~2023-06-15 10:35] MED LIST changes: +OMEPRAZOLE40 MG PO; +ZANAFLEX4 MG PO
[2023-06-15 11:10] LABS: BASO # 0.1 10*3/uL (0.0-0.1); BASO % 0.8 % (0.0-1.0); EOS # 0.1 10*3/uL (0.0-0.4); EOS % 1.8 % (1.0-4.0); HEMATOCRIT 40.3 % (42.0-52.0); LYMPH # 2.6 10*3/uL (1.3-4.4); LYMPH % 36.1 % (27.0-41.0); MEAN CORPUSCULAR HGB 29.9 pg (27.0-31.0); MEAN CORPUSCULAR HGB CONC 33.3 g/dl (33.0-37.0); MEAN PLATELET VOLUME 10.5 fl (9.6-12.3); MONO # 0.4 10*3/uL (0.1-1.0); MONO % 5.2 % (3.0-9.0); NEUT # 4.1 10*3/uL (2.3-7.9); PLATELET COUNT AUTOMATED 204 10*3/uL (130-400); RED BLOOD COUNT 4.48 10*6/uL (4.50-5.90); RED CELL DISTRI WIDTH 12.4 % (0-14.5); WHITE BLOOD COUNT 7.3 10*3/uL (4.8-10.8)
[2023-06-15] MEDS ORDERED: SERTRALINE HYDR50 MG PO (11:18)
[2023-06-15 11:21] LABS: ACT PARTIAL THROMBO TIME 29.3 SECONDS (20.0-32.1)
[2023-06-15 11:32] LABS: ALKALINE PHOSPHATASE 74 U/L (46-116); BUN 13 mg/dl (9-23); CHLORIDE 109 mmol/L (98-107); POTASSIUM 3.8 mmol/L (3.4-5.1); SGPT/ALT 21 U/L (5-49); TOTAL PROTEIN 6.4 gm/dL (6.0-8.0)
[2023-06-15] MEDS ORDERED: MELOXICAM15 MG PO (13:22)
== END 2023-06-15 13:44 | disposition home or self-care (01) ==
LOC: ED 10:35
PROVIDERS: Internal Medicine
DX: R07.89 Other chest pain (principal); R06.02 Shortness of breath; I10 Essential (primary) hypertension; K21.9 Gastro-esophageal reflux disease without esophagitis; F32.A Depression, unspecified; Z87.442 Personal history of urinary calculi; E78.00 Pure hypercholesterolemia, unspecified; Z88.0 Allergy status to penicillin; Z88.2 Allergy status to sulfonamides; Z88.6 Allergy status to analgesic agent; Z98.890 Other specified postprocedural states

== ENCOUNTER 2023-07-26 21:16 | Emergency (ER) | payer BC ==
[~2023-07-26] VITALS: Ht 175.2 cm; Wt 102.1 kg
[~2023-07-26 21:16] MED LIST changes: +MELOXICAM15 MG PO; +SERTRALINE HYDR50 MG PO
[2023-07-26] MEDS ORDERED: methylPREDNISolone sod succ 125 MG VIAL IM ONE (22:30)
[2023-07-26] MEDS ORDERED: PREDNISONE20 M1 PO (22:37)
[2023-07-26] MEDS ORDERED: predniSONE 20 MG TAB PO ONE (22:50)
== END 2023-07-26 23:48 | disposition home or self-care (01) ==
LOC: ED 21:16
DX: M72.2 Plantar fascial fibromatosis (principal); M79.672 Pain in left foot; I10 Essential (primary) hypertension; K21.9 Gastro-esophageal reflux disease without esophagitis; F32.A Depression, unspecified; Z87.442 Personal history of urinary calculi; E78.00 Pure hypercholesterolemia, unspecified; Z88.0 Allergy status to penicillin; Z88.2 Allergy status to sulfonamides; Z88.6 Allergy status to analgesic agent; Z98.890 Other specified postprocedural states

== ENCOUNTER 2023-08-08 20:41 | Emergency (ER) | payer BC ==
[~2023-08-08] VITALS: Ht 170.1 cm; Wt 113.4 kg
[2023-08-08] MEDS ORDERED: CEPHALEXIN 500 MG CAP PO ONE (21:00)
[2023-08-08] MEDS ORDERED: CEPHALEXIN500 M1 PO (21:03)
== END 2023-08-08 22:05 | disposition home or self-care (01) ==
LOC: ED 20:41
DX: L02.512 Cutaneous abscess of left hand (principal); I10 Essential (primary) hypertension; K21.9 Gastro-esophageal reflux disease without esophagitis; F32.A Depression, unspecified; Z87.442 Personal history of urinary calculi; E78.00 Pure hypercholesterolemia, unspecified; Z88.0 Allergy status to penicillin; Z88.2 Allergy status to sulfonamides; Z88.6 Allergy status to analgesic agent; Z98.890 Other specified postprocedural states

== ENCOUNTER 2023-09-13 18:03 | Emergency (ER) | payer OTHER, BC ==
[~2023-09-13] VITALS: Ht 175.2 cm; Wt 106.6 kg
[~2023-09-13 18:03] MED LIST changes: +CEPHALEXIN500 M1 PO
[2023-09-13] MEDS ORDERED: IBU600 M1 PO (18:53)
[2023-09-14] MEDS ORDERED: Cyclobenzaprine Hydrochlorid 10 MG TAB PO ONE (00:15)
== END 2023-09-14 00:18 | disposition home or self-care (01) ==
LOC: ED 18:03
DX: S16.1XXA Strain of muscle, fascia and tendon at neck level, initial encounter (principal); S09.8XXA Other specified injuries of head, initial encounter; M25.512 Pain in left shoulder; I10 Essential (primary) hypertension; K21.9 Gastro-esophageal reflux disease without esophagitis; F32.A Depression, unspecified; Z87.442 Personal history of urinary calculi; E78.00 Pure hypercholesterolemia, unspecified; Z88.0 Allergy status to penicillin; Z88.2 Allergy status to sulfonamides; Z88.6 Allergy status to analgesic agent; Z98.890 Other specified postprocedural states; Z87.891 Personal history of nicotine dependence; V49.49XA Driver injured in collision with other motor vehicles in traffic accident, initial encounter; Y93.89 Activity, other specified; Y92.410 Unspecified street and highway as the place of occurrence of the external cause; Y99.0 Civilian activity done for income or pay

== ENCOUNTER 2024-01-04 21:05 | Emergency (ER) | payer BC ==
[~2024-01-04] VITALS: Ht 175.2 cm; Wt 99.8 kg
[~2024-01-04 21:05] MED LIST changes: +IBU600 M1 PO
[2024-01-04 22:03] LABS: BASO # 0.1 10*3/uL (0.0-0.1); BASO % 0.6 % (0.0-1.0); EOS # 0.2 10*3/uL (0.0-0.4); EOS % 2.5 % (1.0-4.0); MEAN CELL VOLUME 88.7 fl (80.0-94.0); MEAN CORPUSCULAR HGB 29.9 pg (27.0-31.0); MEAN CORPUSCULAR HGB CONC 33.7 g/dl (33.0-37.0); MEAN PLATELET VOLUME 10.6 fl (9.6-12.3); MONO # 0.5 10*3/uL (0.1-1.0); NEUT # 4.6 10*3/uL (2.3-7.9); NEUT % 51.3 % (47.0-73.0); PLATELET COUNT AUTOMATED 223 10*3/uL (130-400); RED BLOOD COUNT 4.85 10*6/uL (4.50-5.90)
[2024-01-04 22:24] LABS: BUN 18 mg/dl (9-23); CHLORIDE 107 mmol/L (98-107); POTASSIUM 3.8 mmol/L (3.4-5.1)
[2024-01-04] MEDS ORDERED: OMNICEF300 MG PO (22:31)
[2024-01-04] MEDS ORDERED: CEFDINIR 300 MG CAP PO ONE (22:35)
== END 2024-01-04 22:45 | disposition home or self-care (01) ==
LOC: ED 21:05
PROVIDERS: Nurse Practitioner Family
DX: H66.93 Otitis media, unspecified, bilateral (principal); Z20.822 Contact with and (suspected) exposure to COVID-19; B34.9 Viral infection, unspecified; R42 Dizziness and giddiness; Z88.0 Allergy status to penicillin; Z88.2 Allergy status to sulfonamides; Z88.6 Allergy status to analgesic agent

== ENCOUNTER 2024-05-31 04:29 | Emergency (ER) | payer BC ==
[~2024-05-31] VITALS: Ht 175.2 cm; Wt 102.1 kg
[~2024-05-31 04:29] MED LIST changes: +OMNICEF300 MG PO
[2024-05-31 05:51] LABS: BUN 14 mg/dl (9-23); CHLORIDE 107 mmol/L (98-107)
[2024-05-31 06:04] LABS: BASO # 0.1 10*3/uL (0.0-0.1); BASO % 0.8 % (0.0-1.0); EOS # 0.4 10*3/uL (0.0-0.4); EOS % 3.7 % (1.0-4.0); MEAN CELL VOLUME 89.4 fl (80.0-94.0); MEAN CORPUSCULAR HGB 30.8 pg (27.0-31.0); MEAN CORPUSCULAR HGB CONC 34.4 g/dl (33.0-37.0); MEAN PLATELET VOLUME 10.9 fl (9.6-12.3); MONO % 9.5 % (3.0-9.0); NEUT # 6.3 10*3/uL (2.3-7.9); NEUT % 63.1 % (47.0-73.0); PLATELET COUNT AUTOMATED 225 10*3/uL (130-400); RED BLOOD COUNT 4.81 10*6/uL (4.50-5.90); RED CELL DISTRI WIDTH 12.2 % (0-14.5)
[2024-05-31] MEDS ORDERED: [UNRECOGNIZED DRUG - OTHER] PO (06:27)
[2024-05-31] MEDS ORDERED: ZITHROMAX250 MG PO (06:27)
[2024-05-31] MEDS ORDERED: BENZONATATE100 M1 PO (06:27)
[2024-05-31] MEDS ORDERED: ALBUTEROL 8 GM INHALER INH ONE (06:30)
[2024-05-31] MEDS ORDERED: BENZONATATE 100 MG CAP PO ONE (06:30)
[2024-05-31] MEDS ORDERED: AZITHROMYCIN 250 MG TAB PO ONE (06:30)
== END 2024-05-31 06:39 | disposition home or self-care (01) ==
LOC: ED 04:29
PROVIDERS: Emergency Medicine
DX: J40 Bronchitis, not specified as acute or chronic (principal); J32.9 Chronic sinusitis, unspecified; I10 Essential (primary) hypertension; E78.00 Pure hypercholesterolemia, unspecified; G21.9 Secondary parkinsonism, unspecified; F32.A Depression, unspecified; Z20.822 Contact with and (suspected) exposure to COVID-19; Z79.899 Other long term (current) drug therapy; Z88.0 Allergy status to penicillin; Z88.2 Allergy status to sulfonamides; Z88.6 Allergy status to analgesic agent; Z98.890 Other specified postprocedural states

== ENCOUNTER 2024-11-24 16:26 | Emergency (ER) | payer BC ==
[~2024-11-24] VITALS: Wt 104.3 kg
[~2024-11-24 16:26] MED LIST changes: +BENZONATATE100 M1 PO; +ZITHROMAX250 MG PO; +[UNRECOGNIZED DRUG - OTHER] PO
[2024-11-24 17:46] LABS: BASO # 0.1 10*3/uL (0.0-0.1); BASO % 0.4 % (0.0-1.0); EOS # 0.2 10*3/uL (0.0-0.4); EOS % 1.5 % (1.0-4.0); MEAN CELL VOLUME 90.8 fl (80.0-94.0); MEAN CORPUSCULAR HGB 29.7 pg (27.0-31.0); MEAN PLATELET VOLUME 10.9 fl (9.6-12.3); MONO # 1.0 10*3/uL (0.1-1.0); MONO % 7.1 % (3.0-9.0); NEUT # 10.4 10*3/uL (2.3-7.9); NEUT % 75.3 % (47.0-73.0); NUCLEATED RED BLOOD CELL 0.0 % (0.0-0.0); NUCLEATED RED BLOOD CELL 0.0 10*3/uL (0.0-0.0); PLATELET COUNT AUTOMATED 208 10*3/uL (130-400); RED CELL DISTRI WIDTH 12.2 % (0-14.5)
[2024-11-24 18:00] LABS: BILIRUBIN Negative (Negative); BLOOD 2+ (Negative); CLARITY Clear (Clear); COLOR Yellow (Yellow); KETONE Negative (Negative); LEUKO ESTERASE 1+ (Negative); NITRITE Negative (Negative); PH 6.0 (4.5-8.0); SPECIFIC GRAVITY 1.010 (1.001-1.030); UROBILINOGEN 0.2 E.U./dl (0.0-1.0)
[2024-11-24 18:10] LABS: BUN 12 mg/dl (9-23)
[2024-11-24 18:27] LABS: BACTERIA TRACE; EPITHELIAL CELLS 0-2; MUCOUS 1+
== END 2024-11-24 19:21 | disposition home or self-care (01) ==
LOC: ED 16:26
PROVIDERS: Nurse Practitioner Family
DX: N13.2 Hydronephrosis with renal and ureteral calculous obstruction (principal); N39.0 Urinary tract infection, site not specified; Z88.0 Allergy status to penicillin; Z88.2 Allergy status to sulfonamides; Z88.6 Allergy status to analgesic agent; Z79.899 Other long term (current) drug therapy